=== PATIENT | male | born 1985 | race Caucasian/White ===

== ENCOUNTER 2023-10-09 16:57 | Emergency (ER) | payer BC, OTHER ==
[2023-10-09] MEDS: Ketorolac 30 MG/ML SDV IM ONE (17:44)
[2023-10-09] MEDS: Acetaminophen/HYDROcodone 325-5 MG Tab PO ONE (17:47)
== END 2023-10-09 18:54 | disposition home or self-care (01) ==
LOC: LB.ED 16:57
DX: S22.32XA Fracture of one rib, left side, initial encounter for closed fracture (principal); S80.11XA Contusion of right lower leg, initial encounter; V80.010A Animal-rider injured by fall from or being thrown from horse in noncollision accident, initial encounter
CPT/HCPCS: 71101-LT; 73030-LT; 73590-RT; 96372; 99283; A9270-GY; J1885